=== PATIENT | female | born 1970 | race Hispanic/Latino ===

== ENCOUNTER → 2023-08-24 15:03 | Outpatient (REF) | payer OTHER, SELFPAY | LOC: HWWDC 15:03 | PROVIDERS: ATTENDING PHYSICIAN Advanced Practice Midwife; FAMILY PHYSICIAN Family Medicine | DX: Z12.31 Encounter for screening mammogram for malignant neoplasm of breast (principal) | CPT/HCPCS: 77063; 77067 ==